=== PATIENT | male | born 1985 | race Caucasian/White ===

== ENCOUNTER 2021-01-28 17:27 | Emergency (ER) | payer SELFPAY ==
[~2021-01-28] VITALS: Ht 188 cm; Wt 90.9 kg
[2021-01-28 17:55] VITALS: BP 136/95
[2021-01-28] MEDS ORDERED: PRED50TA PO (19:08)
--- NOTE | 2021-01-28 19:08 | PHYS DOC ---
Past Medical History Past Surgical History: No Surgical History Smoking Status: Current Every Day Smoker Alcohol Use: None General Adult EDM: Chief Complaint: SKIN RASH/ABSCESS HPI: HPI: Is a 36-year-old male that presents today with a rash over his forearm area, his back and his upper legs. 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 He states that he has taken Benadryl at home for the pain and itching and he said that has not been helping. Patient denies changing laundry detergents or having any contact with any plant that may have caused allergic reaction Review of Systems: Review of Systems: Constitutional: Denies fever or chills. [] Eyes: Denies change in visual acuity. [] HENT: Denies nasal congestion or sore throat. [] Respiratory: Denies cough or shortness of breath. [] Cardiovascular: Denies chest pain or edema. [] GI: Denies abdominal pain, nausea, vomiting, bloody stools or diarrhea. [] : Denies dysuria. [] Musculoskeletal: Denies back pain or joint pain. [] Integument: rash. [] Neurologic: Denies headache, focal weakness or sensory changes. [] Endocrine: Denies polyuria or polydipsia. [] Lymphatic: Denies swollen glands. [] Psychiatric: Denies depression or anxiety. [] Heart Score: C/O Chest Pain: N/A Risk Factors: Risk Factors: DM, Current or recent (<one month) smoker, HTN, HLP, family history of CAD, obesity. Risk Scores: Score 0 - 3: 2.5% MACE over next 6 weeks - Discharge Home Score 4 - 6: 20.3% MACE over next 6 weeks - Admit for Clinical Observation Score 7 - 10: 72.7% MACE over next 6 weeks - Early Invasive Strategies Allergies: Allergies: Allergies Coded Allergies Type Severity Reaction Last Updated Verified No Known Drug Allergies 01/28/21 No Physical Exam: PE: Constitutional: Well developed, well nourished, no acute distress, non-toxic appearance. [] HENT: Normocephalic, atraumatic, bilateral external ears normal, oropharynx mois t, no oral exudates, nose normal. [] Eyes: PERRLA, EOMI, conjunctiva normal, no discharge. [] Neck: Normal range of motion, no tenderness, supple, no stridor. [] Cardiovascular:Heart rate regular rhythm, no murmur [] Lungs & Thorax: Bilateral breath sounds clear to auscultation [] Abdomen: Bowel sounds normal, soft, no tenderness, no masses, no pulsatile masses. [] Skin: Warm, dry, no erythema, no rash. [] Back: Extremely dry skin raised erythemic areas no drainage noted Extremities: Raised erythemic areas noted over the forearms bilaterally and upper legs bilaterally Neurologic: Alert and oriented X 3, normal motor function, normal sensory function, no focal deficits noted. [] Psychologic: Affect normal, judgement normal, mood normal. [] Current Patient Data: Vital Signs: Vital Signs Date Time Temp Pulse Resp B/P (MAP) Pulse Ox O2 Delivery O2 Flow Rate FiO2 01/28/21 17:55 98.3 16 136/95 (109) 97 Room Air 98.3 EKG: EKG: [] Radiology/Procedures: Radiology/Procedures: [] Course & Med Decision Making: Course & Med Decision Making Pertinent Labs and Imaging studies reviewed. (See chart for details) We will treat patient with oral steroids for 5 days, encourage patient to take shower directly after working also to use dye free fragrance free laundry detergent . May take [id number] Benadryl at night to help with itching and pain. Follow-up with primary care physician or one of the clinics in the brochure that was provided for further work-up of this rash . Madisyn Disclaimer: Madisyn Disclaimer: This electronic medical record was generated, in whole or in part, using a voice recognition dictation system. Departure Departure Impression: Primary Impression: Contact dermatitis Qualified Codes: L24.81 - Irritant contact dermatitis due to metals Disposition: HOME / SELF CARE / HOMELESS Condition: STABLE Referrals: NO PCP (PCP) Patient Instructions: Contact Dermatitis Additional Instructions: Return to the emergency department if you have increased shortness of breath, develop a fever, or her areas of rash become reddened and swollen and have drainage noted to them [] Take prednisone for the next 5 days May use [id number] hydrocortisone cream to areas that are painful and itching, keep skin keep clean and dry as best you can also use a moisturizer that is fragrance free or dye free Scripts Prednisone (PREDNISONE) 50 Mg Tablet 1 TAB PO DAILY, #5 TAB Prov: MOSHE DENIS APRN 01/28/21 MOSHE DENIS APRN Jan 28, 2021 19:08
== END 2021-01-28 19:18 | disposition home or self-care (01) ==
LOC: ER 17:27
DX: L24.81 Irritant contact dermatitis due to metals (principal); F17.200 Nicotine dependence, unspecified, uncomplicated
CPT/HCPCS: 99283